=== PATIENT | female | born 1960 | race Hispanic/Latino ===

== ENCOUNTER 2019-04-27 09:57 | Observation (INO) | payer BC, OTHER ==
[2019-04-27 10:27] LABS: #Eosinphils 0.2 thou/uL (0.0-0.7); #Lymphocytes 3.7 thou/uL (1.20-3.40); #Monocytes 0.9 thou/uL (0.11-0.59); %Basophils 0.4 % (0.0-1.0); %Eosinophils 1.4 % (0.0-10.0); %Lymphocytes 31.5 % (21.0-51.0); %Monocytes 7.4 % (0.0-10.0); %Neutrophils 59.2 % (42.0-75.0); Hemoglobin 13.4 g/dL (12.0-16.0); Mean Corpuscular HGB CONC 33.1 g/dL (32.0-36.0); Mean Corpuscular Hemoglobin 28.6 pg (27.0-31.0); Mean Corpuscular Volume 86.4 fL (78.0-98.0); Mean Platelet Volume 8.8 fL (7.4-10.4); Platelet Count 334 thou/uL (130-400); RBC Distribution Width 12.8 % (11.5-14.5); Red Blood Cell (RBC) Count 4.68 mill/uL (4.20-5.40); White Blood Cell (WBC) Count 11.7 thou/uL (4.8-10.8)
[2019-04-27] MEDS ORDERED: Nitroglycerin 0.4 MG TAB 1 EACH ONE (10:29)
--- NOTE | 2019-04-27 10:50 | RAD ---
PORTABLE CHEST 1 VIEW: Date: 04/27/2019 Time: 1014 hours HISTORY: Chest pain. FINDINGS: The heart size is at upper limits of normal. The lungs are expanded without focal areas of consolidat ion, pneumothoraces, or pleural effusions. IMPRESSION: No acute process. POS: [facility]
[2019-04-27 11:03] LABS: CK (CPK) 103 U/L (29-168); Lipase 23 U/L (8-78)
[2019-04-27] MEDS ORDERED: Aspirin Chewable 81 MG TAB ONE (11:55)
[2019-04-27 12:20] LABS: ALT (SGPT) 29 U/L (8-55); AST (SGOT) 33 U/L (5-34); Albumin 4.3 g/dL (3.5-5.0); Alkaline Phosphatase 80 U/L (40-110); Anion Gap 18 mmol/L (10-20); BUN (Urea Nitrogen) 7 mg/dL (9.8-20.1); Bilirubin, Total 0.3 mg/dL (0.2-1.2); Calc. Creatinine Clearance 0 mL/min (70-130); Calcium 9.5 mg/dL (7.8-10.44); Carbon Dioxide 23 mmol/L (22-29); Chloride 103 mmol/L (98-107); Estimated GFR-MDRD 77; Globulin 3.2 g/dL (2.4-3.5); Glucose 170 mg/dL (70-105); Potassium 4.7 mmol/L (3.5-5.1); Protein, Total 7.5 g/dL (6.0-8.3); Sodium 139 mmol/L (136-145)
--- NOTE | 2019-04-27 13:13 | CT ---
CT PULMONARY ANGIOGRAM WITH IV CONTRAST AND 3D POSTPROCESSING: Date: 04/27/2019 HISTORY: Elevated D-Dimer and chest pain. FINDINGS: There is good contrast opacification of the pulmonary arterial vasculature without filling defects to suggest pulmonary embolism. Thoracic aorta demonstrates no evidence of aneurysmal dilatation. No ple ural or pericardial effusions are seen. No pneumothoraces, focal areas of consolidation, lung masses, or nodules are seen. There are degenerative changes in the spine. Upper abdominal tomograms demonstr ate postop changes of cholecystectomy. IMPRESSION: No CT evidence of pulmonary embolism. POS: [facility]
[2019-04-27] MEDS ORDERED: Morphine 4 MG/ML VIAL ONE (13:46)
[2019-04-27] MEDS ORDERED: Dextrose 50% Abboject 50 ML SYRINGE SLOW IVP PRN (15:22)
[2019-04-27] MEDS ORDERED: Nitroglycerin 0.4 MG TAB (25 Tab Bottle) PO PRN (15:22)
[2019-04-27] MEDS ORDERED: Dextrose 5% in Water 1,000 ML IV PRN (15:22)
[2019-04-27] MEDS ORDERED: Insulin Regular 300 UNITS/3 ML VIAL SC PRN ×2 (15:22)
[2019-04-27] MEDS ORDERED: Ondansetron PF 4 MG/2 ML Vial IVP PRN (15:24)
[2019-04-27] MEDS ORDERED: Acetaminophen 325 MG TAB PO PRN (15:24)
[2019-04-27] MEDS ORDERED: Ondansetron ODT 4 MG TAB PO PRN (15:24)
[2019-04-27] MEDS ORDERED: Calcium Carbonate 500 MG ChewTAB PO PRN (15:24)
[2019-04-27] MEDS ORDERED: Iopamidol-370 76% 500 ML 1 ML ONE (15:28)
[2019-04-27 17:01] LABS: Troponin I Less than 0.010 ng/mL (< 0.028)
[2019-04-27 18:09] VITALS: BMI 36.3
[2019-04-27 19:52] LABS: Troponin I 0.011 ng/mL (< 0.028)
[2019-04-27] MEDS ORDERED: Rosuvastatin 10 MG TAB PO SCH (21:00)
[2019-04-28] MEDS ORDERED: diphenhydrAMINE 25 MG CAP PO PRN (03:54)
[2019-04-28] MEDS ORDERED: Levothyroxine Sodium 50 MCG TAB PO SCH (06:00)
--- NOTE | 2019-04-28 08:36 | HP ---
PRIMARY CARE: Dr. Wilmar Mike. CHIEF COMPLAINT: Chest discomfort. HISTORY OF PRESENT ILLNESS: The patient is a 58-year-old female with hypertension, diabetes mellitus type 2, hyperlipidemia, and family history of heart disease, presented to the emergency room with chest discomfort. The chest discomfort has been ongoing since yesterday. It is precordial, radiating to her left scapula. She denies any aggravating or relieving factor. No nausea, vomiting, diaphoresis, or palpitations reported. Sometimes the pain gets worse with deep breathing. She has a very strong family history of premature coronary artery disease. She denies any previous cardiac testing. No recent immobilization or travel reported. PAST MEDICAL HISTORY: 1. Hypertension. 2. Diabetes mellitus type 2. 3. Hyperlipidemia. 4. Hypothyroidism. PAST SURGICAL HISTORY: 1. Cholecystectomy. 2. D and C. ALLERGIES: NO KNOWN DRUG ALLERGIES. CURRENT HOME MEDICATIONS: 1. Levothyroxine 50 mcg daily. 2. Lisinopril 5 mg daily. 3. Metformin 1000 mg b.i.d. 4. Crestor 10 mg q.h.s. SOCIAL HISTORY: The patient currently lives at home with her family. Denies any current use of alcohol, tobacco, or drug use. FAMILY HISTORY: As discussed above. REVIEW OF SYSTEMS: All other review of systems was reviewed and was found negative. PHYSICAL EXAMINATION: VITAL SIGNS: Temperature 99, respirations of 16, pulse of 94, blood pressure of 150/70, and O2 saturation 99% on room air. GENERAL: A 58-year-old female, in no apparent distress. Denies any chest discomfort at this time. HEENT: Head, atraumatic and normocephalic. Sclerae anicteric. Moist mucous membranes. No oral lesion. NECK: Supple. No JVD. No carotid bruit. LUNGS: Clear to auscultation bilaterally. No wheezing, rales, or rhonchi. HEART: S1 and S2 present. Regular rate and rhythm. No rubs or gallops. No reproducible chest wall tenderness. ABDOMEN: Soft, nontender. Bowel sounds present. EXTREMITIES: No edema or calf tenderness. NEUROLOGY: Grossly nonfocal. Moves all 4 extremities. PSYCHIATRY: Alert, awake, and oriented x3. LABORATORY FINDINGS: CBC showed WBC 11.7, hemoglobin 13.4, hematocrit 40.5, and platelets 334. D-dimer was 0.53. Chemistry showed sodium 139, potassium 4.7, chloride 103, bicarb 23, BUN 7, creatinine 0.77. Troponin negative. Lipase was 23. CK was 103. IMAGING STUDIES: Chest x-ray by my review was negative for infiltrate. EKG by my review showed sinus rhythm with premature supraventricular complex. CT angiogram of the chest was negative for pulmonary embolism. IMPRESSION: 1. Chest discomfort, rule out acute coronary syndrome. 2. Family history of premature coronary artery disease. 3. Hypertension. 4. Hyperlipidemia. 5. Diabetes mellitus, type 2. 6. Chronic kidney disease, stage 2. 7. Elevated D-dimer with negative CT angiogram of the chest. PLAN: The patient will be monitored on telemetry unit. Serial troponins will be obtained. Due to intermediate probability for coronary artery disease, we will schedule a Cardiolite stress test. We will resume levothyroxine, lisinopril, and Crestor. Hold metformin for now. We will start insulin sliding scale. Aspirin has been started. The patient understands the above plan of care. Job ID: [id number]
[2019-04-28] MEDS ORDERED: Aspirin 325 mg Enteric Coated Tablet PO SCH (09:00)
[2019-04-28] MEDS ORDERED: Lisinopril 5 MG TAB PO SCH (09:00)
[2019-04-28 12:25] VITALS: BP 122/60; TEMP 97.3
--- NOTE | 2019-04-28 12:37 | NM ---
Exam: NUCLEAR MEDICINE CARDIAC SPECT with EF and wall motion, stress only HISTORY: Chest pain This is a nuclear medicine treadmill exam using Morgan protocol Patient was injected with 29.5 mCi technetium 99m sestamibi intravenously for stress images. No scan evidence for infarct or ischemia. LHR 0.39 EDV 58 mL Ejection fraction 75% Wall motion is normal. IMPRESSION: Unremarkable cardiac SPECT with EF and wall motion, stress only
--- NOTE | 2019-04-28 18:48 | DIS ---
DATE OF ADMISSION: 04/27/2019 DATE OF DISCHARGE: 04/28/2019 DISCHARGE DISPOSITION: Home. FOLLOWUP: Follow up with primary care physician, Dr. Wilmar Mike in 1 week. ALLERGIES: NO KNOWN DRUG ALLERGIES. DISCHARGE MEDICATIONS: Same as admission medications. The patient was seen on the day of discharge. Denies any new complaints. No chest pain, shortness of breath or palpitations reported. BRIEF HOSPITAL COURSE: The patient is a 58-year-old female with hypertension, diabetes mellitus type 2, hyperlipidemia, and family history of heart disease, presented to the emergency room with chest discomfort. Please refer to the history and physical for further details. The patient was admitted to the hospital with a diagnosis of chest discomfort, rule out acute coronary syndrome. Serial troponins remain negative. She underwent a Cardiolite stress test that was negative for reversible ischemia. Ejection fraction was 75% without any wall motion abnormality. She also underwent a CT angiogram of the chest in the emergency room for elevated D-dimer, which was negative. She appears stable for discharge. FINAL DIAGNOSES: 1. Chest discomfort, suspected musculoskeletal, acute coronary syndrome ruled out. 2. Hypertension. 3. Hyperlipidemia. 4. Diabetes mellitus type 2. 5. Chronic kidney disease, stage 2. 6. Family history of heart disease. 7. Patient understands the above. PLAN: Plan of care. Job ID: [id number]
--- NOTE | 2019-05-05 13:39 | EKG ---
Test Reason : Blood Pressure : / mmHG Vent. Rate : 071 BPM Atrial Rate : 071 BPM P-R Int : 128 ms QRS Dur : 086 ms QT Int : 386 ms P-R-T Axes : 030 001 021 degrees QTc Int : 419 ms Sinus rhythm with Premature supraventricular complexes Otherwise normal ECG Confirmed by KARI OLIVARES M.D. ([id number]), medical editor JODI SANCHEZ ([id number] on 05/05/2019 1:39:12 PM Referred By: Confirmed By:KARI OLIVARES M.D.
== END 2019-04-28 13:47 | disposition home or self-care (01) ==
LOC: ERS 09:57 → ERHOLD 15:27 → 2SW 17:45
PROVIDERS: ADMIT Internal Medicine; ATTEND Internal Medicine
DX: R07.89 Other chest pain (principal); I12.9 Hypertensive chronic kidney disease with stage 1 through stage 4 chronic kidney disease, or unspecified chronic kidney disease; E11.22 Type 2 diabetes mellitus with diabetic chronic kidney disease; N18.2 Chronic kidney disease, stage 2 (mild); E78.5 Hyperlipidemia, unspecified; E03.9 Hypothyroidism, unspecified; R79.1 Abnormal coagulation profile; Z82.49 Family history of ischemic heart disease and other diseases of the circulatory system; Z79.84 Long term (current) use of oral hypoglycemic drugs; Z79.899 Other long term (current) drug therapy
CPT/HCPCS: 36415; 36416; 71045; 71275; 78452; 80053; 82550; 83690; 84484; 85025; 85379; 93005; 93017; 94760; 96361; 96374; A9500; G0378; J2270; Q9967

== ENCOUNTER 2024-09-16 02:29 | Emergency (ER) | payer BC, OTHER | END 2024-09-16 04:02 | disposition home or self-care (01) | LOC: ERS 02:29 | DX: S80.02XA Contusion of left knee, initial encounter (principal); S80.01XA Contusion of right knee, initial encounter; W01.0XXA Fall on same level from slipping, tripping and stumbling without subsequent striking against object, initial encounter; Y92.89 Other specified places as the place of occurrence of the external cause; Y99.0 Civilian activity done for income or pay | CPT/HCPCS: 99283 ==